=== PATIENT | female | born 1960 | race African-American/Black ===

== ENCOUNTER 2021-08-18 10:44 | Emergency (ER) | payer OTHER ==
[~2021-08-18] VITALS: Ht 180.3 cm; Wt 77.1 kg
[2021-08-18 10:50] VITALS: BP 129/64
[2021-08-18] MEDS ORDERED: PREDNISONE 20 M20 MG PO (11:37)
[2021-08-18] MEDS ORDERED: NAPROSYN500 MG PO (11:37)
--- NOTE | 2021-08-19 07:08 | EKG ---
[address] [address] ELECTROCARDIOGRAM REPORT Name: GIGI GARG Room #: DEP NUNU Coy#: [id number] Admission: 08/18/21 Attend Phys: Discharge: 08/18/21 Date of : 64 Report #: [id number] [facility] ED Test Date: 2021-08-18 Test Time: 10:55:18 Pat Name: GIGI GARG Department: Room: Gender: F Wire Temperer: : 1960 Requested By: Mark Archer Order Number: [id number] MD: Ej Snyder Measurements Intervals [place] Rate: 59 P: 51 VT: 182 QRS: 22 QRSD: 102 T: 38 QT: 371 QTc: 368 Interpretive Statements Sinus rhythm Minimal ST elevation, anterior leads No previous ECG available for comparison Electronically Signed On 08-19-2021 7:08:04 [employer] DIRECT[employer] by Ej Snyder [email or web address] <ELECTRONICALLY SIGNED> By: Ej Snyder MD, [facility] 08/19/21 0708 [id number] Ej Snyder MD, FACC /EPI
== END 2021-08-18 12:04 | disposition home or self-care (01) ==
LOC: ER 10:44
DX: M54.10 Radiculopathy, site unspecified (principal)